=== PATIENT | male | born 1945 | race Caucasian/White ===

== ENCOUNTER 2016-08-04 11:30 | Emergency (ER) | payer OTHER, MEDICARE ==
[2016-08-04 11:36] VITALS: TEMP 98.2
[2016-08-04] MEDS ORDERED: KETOROLAC 30 MG/1 ML SDV IVP ONE (12:15)
[2016-08-04] MEDS ORDERED: METOCLOPRAMIDE 10 MG/2 ML VIAL IVP ONE (12:15)
[2016-08-04] MEDS ORDERED: NS 1,000 ML IV ONE (12:15)
[2016-08-04] MEDS ORDERED: HYDROmorphONE/DILAUDID 1 MG/ML SYR IVP ONE ×4 (12:15→16:54)
--- NOTE | 2016-08-04 12:20 | EDPHY ---
H & P Stated Complaint: Migraine 11 days with sinus pressure Source: Patient Exam Limitations: No limitations - Personal History Current Tetanus/Diphtheria Vaccine: Yes Current Tetanus Diphtheria and Acellular Pertussis (TDAP): Yes Tetanus Vaccine Date: 07/2012 - Medical/Surgical History Hx Asthma: No Hx Chronic Respiratory Disease: No Hx Diabetes: No Hx Cardiac Disease: Yes Hx Renal Disease: No Hx Cirrhosis: No Hx Alcoholism: No Hx HIV/AIDS: No Hx Splenectomy or Spleen Trauma: No Other PMH: medical- DVT 07/15, CAD, HTN, HLD. surgical- knee scope 07/22/13, spinal fusions, B thumbs replaced, rigo - Family History Significant Family History: No pertinent family hx - Social History Smoking Status: Never smoked Alcohol Use: Sober Drug Use: None Time Seen by Provider: 08/04/16 12:05 HPI/ROS: CHIEF COMPLAINT: Headache HISTORY OF PRESENT ILLNESS: Patient is a 70-year-old man who states that he is a lifetime chronic migrainer. He states that he has had a migraine for the last several days. He was present for 7 days and then resolved for 2 days and now has returned for 4 days. He states that they are absolutely typical of his chronic migraines. He has taken his Imitrex at home without relief. He has seen several neurologists in the past. Most recently Marie Fonseca who tried Botox injections without significant relief. He also has been through the [facility] protocol without success. In the past he had been on Coumadin for DVT but no longer is. He takes methadone for chronic back pain. He follows Dr. Raina Mcleod for this. He he has not had a fever. He has had some sinus congestion but only for the last day. He has not had any focal weakness or numbness. No speech abnormalities. He is able to ambulate without difficulty. No vision changes. REVIEW OF SYSTEMS: Constitutional: denies: chills, fever, recent illness, recent injury EENTM: denies: blurred vision, double vision, nose congestion Respiratory: denies: cough, shortness of breath Cardiac: denies: chest pain, irregular heart rate, lightheadedness, palpitations Gastrointestinal/Abdominal: denies: abdominal pain, diarrhea, nausea, vomiting, blood streaked stools Genitourinary: denies: dysuria, frequency, hematuria, pain Musculoskeletal: denies: joint pain, muscle pain Skin: denies: lesions, rash, jaundice, bruising Neurological: See HPI Hematologic/Lymphatic: denies: blood clots, easy bleeding, easy bruising Immunologic/allergic: denies: HIV/AIDS, transplant EXAM: GENERAL: Towel covering head, answers all questions appropriately. HEAD: Atraumatic, normocephalic. EYES: Pupils equal round and reactive to light, extraocular movements intact, sclera anicteric, conjunctiva are normal. ENT: TMs normal, nares patent, oropharynx clear without exudates. Moist mucous membranes. NECK: Normal range of motion, supple without lymphadenopathy or JVD. LUNGS: Breath sounds clear to auscultation bilaterally and equal. No wheezes rales or rhonchi. HEART: Regular rate and rhythm without murmurs, rubs or gallops. ABDOMEN: Soft, nontender, normoactive bowel sounds. No guarding, no rebound. No masses appreciated. BACK: No CVA tenderness, no spinal tenderness, step-offs or deformities EXTREMITIES: Normal range of motion, no pitting or edema. No clubbing or cyanosis. NEUROLOGICAL: Cranial nerves II through XII grossly intact. Normal speech, normal gait. 5/5 strength, normal movement in all extremities, normal sensation PSYCH: Normal mood, normal affect. SKIN: Warm, dry, normal turgor, no visible rashes or lesions. (José Romano) Constitutional: Initial Vital Signs Temperature (C) 36.8 C 08/04/16 11:33 Heart Rate 111 H 08/04/16 11:33 Respiratory Rate 16 08/04/16 11:33 Blood Pressure 138/100 H 08/04/16 11:33 O2 Sat (%) 95 08/04/16 11:33 O2 Delivery Mode Room Air O2 (L/minute) 2 Allergies/Adverse Reactions: NSAIDS (Non-Steroidal Anti-Inflamma [Nsaids] Allergy (Severe, Verified 08/26/13 19:53) GASTRIC ULCER acetaminophen [From Percocet] Allergy (Intermediate, Verified 08/26/13 19:53) Vomiting hydrocodone bitartrate [From Vicodin] Allergy (Intermediate, Verified 08/26/13 19:53) Vomiting nitroglycerin [Nitroglycerin] Allergy (Intermediate, Verified 08/26/13 19:53) Other-Enter Comments oxycodone HCl [From Percocet] Allergy (Intermediate, Verified 08/26/13 19:53) Vomiting CODIENE Allergy (Intermediate, Uncoded 08/26/13 19:53) Vomiting Home Medications: Medication Instructions Recorded HYDROmorphone HCL [Dilaudid] 4 mg PO Q4-6PRN PRN 09/26/11 Metoprolol Succinate 50 mg PO BID 09/26/11 Rosuvastatin Calcium [Crestor] 20 mg PO HS 09/26/11 ELETRIPTAN HYDROBROMIDE [RELPAX] 40 mg PO Q3D PRN 09/27/11 Fish Oil/Dha/Epa [Fish Oil 1,200 2 each PO DAILY 09/27/11 mg Fish Oil] Zolpidem Tartrate [Ambien] 10 mg PO HS 09/27/11 Warfarin Sodium [Coumadin 2.5MG 08/26/13 (RX)] Warfarin Sodium [Coumadin 5MG (RX)] 08/26/13 AZITHROMYCIN [Z-PACK] 250 mg PO DAILY #4 tab 08/04/16 Medical Decision Making - Diagnostics Imaging: Pipo June-radiologist called this morning regarding this patient's CT head w/o contrast scan that was performed on the August 04, but apparently there was no documentation of the radiology read being communicated to Dr. Dawson. A review of the chart this am reveals that Dr. Dawson did diagnose the patient with maxillary sinusitis, so I suspect that the read was communicated on Aug 04. Per Dr. June, the CT scan reveals sinusitis but no intracranial pathology (Wallace Farmer) ED Course/Re-evaluation: 1544; this patient was signed over to me at 3:00 p.m. shift change. Patient having ongoing migraine headache consistent with his previous migraines. He still the made better pain control over the ER visit. He has been here for 4 hours. His pain is now 6/10. However he is requesting more pain medicine. I re-evaluated him he has a nonfocal neurological exam is symptoms are similar to previous migraines he is requesting IV Dilaudid. I have just ordered 2 mg IV Dilaudid. 1655: re-evaluation at this time patient still tells me his headache is 7/10. Initially want to go home however now he is requesting more Dilaudid. I will give him 1 more dose of Dilaudid to see if this helps with his acute pain and hopefully patient go home. I did offer patient admission for status migrainosus however he at this time is decline. 1732: Re-evaluation at this time patient is resting comfortably. Patient does feel much better his pain is currently 4/10 after 4 mg of IV Dilaudid. He is requesting to go home. Again I did offer him hospital admission for intractable headache however he has declined. He is comfortable going home at this time. Re-examination is neurological exam is unremarkable not vomiting no fever no meningeal signs a nonfocal neurological exam all cranial nerves are intact. (Herminio Dawson) The patient states that his headache has gone from a 9 to an 8. He is on methadone chronically. I will treat with more Dilaudid as well as dexamethasone and Ativan. 2:20 p.m. the patient's pain is slightly better. He states that it is now down to a 7 or 6. He states that is his goal would be to get it down to a 4. He states that really does not completely go away. We will try treating him with ketamine. Is 3:10 p.m. the patient is feeling slightly better. He has only received half dose of ketamine. We will give him the rest. Care transferred to Dr. Herminio Dawson. I recommended a dose or 2 more of pain medication if needed and then home. The patient and his are motivated to go home and do not wish to stay in the hospital. (José Romano) Differential Diagnosis: Partial list of the Differential diagnosis considered include but were not limited to; migraine, sinusitis, narcotic dependence and although unlikely based on the history and physical exam, I also considered hemorrhage, tumor, abscess. (José Romano) - Data Points Laboratory Results: Laboratory Results 08/04/16 12:11 Medications Given: Discontinued Medications Azithromycin (Zithromax) 500 mg PO EDNOW ONE PRN Reason: Protocol Stop: 08/04/16 13:41 Last Admin: 08/04/16 14:03 Dose: 500 mg Dexamethasone (Decadron Injection) 10 mg IVP EDNOW ONE Stop: 08/04/16 13:27 Last Admin: 08/04/16 14:03 Dose: 10 mg Diphenhydramine HCl (Benadryl Injection) 25 mg IVP EDNOW ONE Stop: 08/04/16 12:16 Last Admin: 08/04/16 12:31 Dose: 25 mg Hydromorphone HCl (Dilaudid) 1 mg IVP EDNOW ONE Stop: 08/04/16 12:16 Last Admin: 08/04/16 12:32 Dose: 1 mg Hydromorphone HCl (Dilaudid) 1 mg IVP EDNOW ONE Stop: 08/04/16 13:27 Last Admin: 08/04/16 13:47 Dose: 1 mg Hydromorphone HCl (Dilaudid) 2 mg IVP EDNOW ONE Stop: 08/04/16 15:46 Last Admin: 08/04/16 16:06 Dose: 2 mg Hydromorphone HCl (Dilaudid) 4 mg IVP EDNOW ONE Stop: 08/04/16 16:55 Last Admin: 08/04/16 17:04 Dose: 4 mg Sodium Chloride (Ns) 1,000 mls @ 0 mls/hr IV ONCE ONE PRN Reason: Wide Open Stop: 08/04/16 12:16 Last Admin: 08/04/16 12:32 Dose: 1,000 mls Ketamine HCl (Ketamine) 15 mg IVP EDNOW ONE Stop: 08/04/16 14:29 Last Admin: 08/04/16 15:01 Dose: 15 mg Ketorolac Tromethamine (Toradol) 30 mg IVP EDNOW ONE Stop: 08/04/16 12:16 Last Admin: 08/04/16 12:32 Dose: 30 mg Lorazepam (Ativan Injection) 1 mg IVP EDNOW ONE Stop: 08/04/16 13:35 Last Admin: 08/04/16 13:48 Dose: 1 mg Metoclopramide HCl (Reglan Injection) 10 mg IVP EDNOW ONE Stop: 08/04/16 12:16 Last Admin: 08/04/16 12:32 Dose: 10 mg Departure - Departure Disposition: Home, Routine, Self-Care Clinical Impression: Migraine Qualifiers: Qualifier Code: (G43.001) Migraine without aura, not intractable, with status migrainosus Sinusitis Qualifiers: Qualifier Code: (J01.00) Acute maxillary sinusitis, unspecified Condition: Fair Instructions: Migraine Headache (ED), Sinusitis (ED) Referrals: Danica Cervantes MD [Primary Care Provider] - As per Instructions Prescriptions: AZITHROMYCIN [Z-PACK] 250 mg PO DAILY #4 tab
[2016-08-04 12:37] LABS: ANION GAP 14 mEq/L (8-16); CALCIUM 9.1 mg/dL (8.5-10.4); CARBON DIOXIDE 19 mEq/l (22-31); CHLORIDE 104 mEq/L (97-110); CREATININE 0.6 mg/dL (0.7-1.3); GLOMERULAR FILTRATION RATE > 60; GLUCOSE 144 mg/dL (70-100); POTASSIUM 4.6 mEq/L (3.5-5.2); SODIUM 137 mEq/L (134-144)
[2016-08-04] MEDS ORDERED: DEXAMETHASONE 10 MG/ML VIAL IVP ONE (13:26)
[2016-08-04] MEDS ORDERED: LORazepam 2 MG/ML INJ IVP ONE (13:34)
[2016-08-04] MEDS ORDERED: AZITHROMYCIN 250 MG TAB PO ONE (13:40)
[2016-08-04] MEDS ORDERED: KETAMINE 100 MG/10 ML SYR IVP ONE (14:28)
[2016-08-04] MEDS ORDERED: NS 100 ML BAG IV ONE (16:55)
[2016-08-04 17:50] VITALS: BP 107/51; PULSE 72; RESP 14; O2SAT 92
--- NOTE | 2016-08-06 09:04 | CT ---
CT Head (Without Contrast) August 04, 2016 Indication: Headache. Technique: Standard noncontrast head CT protocol utilizing 5 mm thick collimated slices and field of view of 23 cm. Dose reduction techniques were utilized. Findings: The brain is normally developed. No intracranial hemorrhage, mass lesion, swelling, or ext raaxial fluid collection. The ventricles are normal caliber and midline. The danielson and white matter ryder s normal attenuation. Danielson-white interfaces are preserved. No evidence of acute ischemia. Mild mucosa l thickening is present in the ethmoid and maxillary sinuses. Layering fluid partially fills the left maxillary sinus. The frontal, sphenoid, and mastoid air cells are clear. Impression: 1. Normal brain. No intracranial hemorrhage or mass. 2. Suspect acute left maxillary sinusitis. Comment: The results were discussed with Dr. Wallace Farmer on August 06, 2016 at 8:30 a.m. The lan dy was completed at 12:37 p.m. on August 04, however, was not submitted to PACS for reporting until 2016. Dr. Farmer will follow up with Dr. Dawson today on August 06.
== END 2016-08-04 17:51 | disposition home or self-care (01) ==
DX: G43.001 Migraine without aura, not intractable, with status migrainosus (principal); J01.00 Acute maxillary sinusitis, unspecified; I10 Essential (primary) hypertension; I25.10 Atherosclerotic heart disease of native coronary artery without angina pectoris; Z79.01 Long term (current) use of anticoagulants
CPT/HCPCS: 70450; 96361; 96374; 96375; 96376; 99285; J1170; J1885; J2765

== ENCOUNTER → 2018-04-15 | Outpatient (CLI) | payer OTHER, MEDICARE | LOC: BMCIMAGING 13:34 | PROVIDERS: ATTEND Internal Medicine Rheumatology | DX: M17.12 Unilateral primary osteoarthritis, left knee (principal); M81.0 Age-related osteoporosis without current pathological fracture ==

== ENCOUNTER 2018-09-16 23:12 | Observation (INO) | payer OTHER, MEDICARE ==
[2018-09-16] MEDS ORDERED: NS 1,000 ML IV ONE (23:24)
--- NOTE | 2018-09-16 23:24 | EDPHY ---
H & P Stated Complaint: epigatric pain and fullness in the chest Time Seen by Provider: 09/16/18 23:24 HPI/ROS: HPI CHIEF COMPLAINT: Chest pain. HISTORY OF PRESENT ILLNESS: This is a 72-year-old male arrives to the emergency room by private vehicle with "indigestion". Patient reports around 10 :00 p.m. Or approximately an hour and half ago he developed epigastric discomfort radiating into his chest. Describes as pressure dull sensation. Epigastric mid chest also radiates to his left shoulder. Left scapula. He denies any nausea denies diaphoresis denies numbness or tingling. He does not typically have this. This concerned him he decided come the emergency room. He currently has chest pressure 6/10. Nonradiating. Patient took full-dose aspirin prior to arrival. Past Medical History: History of hypertension, hyperlipidemia, osteoarthritis, debilitating migraines, chronic pain coronary artery disease without stents, gastric ulcer Past Surgical History: No recent surgery history of gastric ulcer Social History: Denies drugs alcohol tobacco. Family History: Heart disease in mom and dad. Also heart disease coronary artery disease with his brother who is 2 years younger with 2 stents. ROS REVIEW OF SYSTEMS: 10 Systems were reviewed and negative with the exception of the elements mentioned in the history of present illness. Exam Constitutional nontoxic no acute distress, triage nursing summary reviewed, vital signs reviewed, awake/alert. Eyes normal conjunctivae and sclera, EOMI, PERRLA. HENT normal inspection, atraumatic, moist mucus membranes, no epistaxis, neck supple/ no meningismus, no raccoon eyes. Respiratory clear to auscultation bilaterally, normal breath sounds, no respiratory distress, no wheezing. Cardiovascular rate normal, regular rhythm, no murmur, no edema, distal pulses normal. Gastrointestinal soft, non-tender, no rebound, no guarding, normal bowel sounds, no distension, no pulsatile mass. Genitourinary no CVA tenderness. Musculoskeletal no midline vertebral tenderness, full range of motion, no calf swelling, no tenderness of extremities, no meningismus, good pulses, neurovascularly intact. Skin pink, warm, & dry, no rash, skin atraumatic. Neurologic awake, alert and oriented x 3, AAOx3, moves all 4 extremities equally, motor intact, sensory intact, CN II-XII intact, normal cerebellar, normal vision, normal speech. Psychiatric normal mood/affect. Heme/Lymph/Immune no lymphadenopathy. Differential Diagnosis: Differential diagnosis includes but is not limited to: ACS, atypical chest pain, pneumothorax, pneumonia, pulmonary embolism, aortic dissection, congestive heart failure, tumor, musculoskeletal pain, esophageal pain, GERD, peptic ulcer disease, pancreatitis Medical Decision Making: Plan for this patient IV establishment IV fluid bolus , rn cardiac cath, troponin, EKG, chest x-ray, rule out acute coronary syndrome Re-evaluation: Patient is allergic to aspirin Additionally allergic to nitroglycerin. He will be given a GI cocktail to see if this improves. EKG interpretation by me on record in [employer] system. Impression time of EKG 2326, sinus rhythm rate of 61, left anterior fascicular block. 1242: Re-evaluation at this time patient resting comfortably. Denies significant chest pain or chest pressure at this time. patient heart score elevated 5. Updated patient on results of his tests including EKG, chest x-ray, troponin and recommend he gets admitted overnight. HEART Score for Major Cardiac Events from [employer] on 09/17/2018 All calculations should be rechecked by clinician prior to use RESULT SUMMARY: 5 points Moderate Score (4-6 points) Risk of MACE of 12-16.6%. INPUTS: History > 1 = Moderately suspicious EKG > 0 = Normal Age > 2 = 65 Risk factors > 2 = 3 risk factors or history of atherosclerotic disease Initial troponin > 0 = normal limit Patient's heart score elevated at 5. Patient agrees for hospital admission for further cardiac evaluation and rule out. Will consult the hospitalist service. Source: Patient - Personal History Current Tetanus/Diphtheria Vaccine: Yes Current Tetanus Diphtheria and Acellular Pertussis (TDAP): Yes Tetanus Vaccine Date: 07/2012 - Medical/Surgical History Hx Asthma: No Hx Chronic Respiratory Disease: No Hx Diabetes: No Hx Cardiac Disease: Yes Hx Renal Disease: No Hx Cirrhosis: No Hx Alcoholism: No Hx HIV/AIDS: No Hx Splenectomy or Spleen Trauma: No Other PMH: medical- DVT 07/15, CAD, HTN, HLD. surgical- knee scope 07/22/13, spinal fusions, B thumbs replaced, rigo - Social History Smoking Status: Never smoked Constitutional: Initial Vital Signs Temperature (C) 36.6 C 09/16/18 23:15 Heart Rate 66 09/16/18 23:15 Respiratory Rate 16 09/16/18 23:15 Blood Pressure 143/108 H 09/16/18 23:15 O2 Sat (%) 92 09/16/18 23:15 O2 Delivery Mode Room Air Allergies/Adverse Reactions: NSAIDS (Non-Steroidal Anti-Inflamma [Nsaids] Allergy (Severe, Verified 09/16/18 23:18) GASTRIC ULCER hydrocodone bitartrate [From Vicodin] Allergy (Intermediate, Verified 09/16/18 23:18) Vomiting nitroglycerin [Nitroglycerin] Allergy (Intermediate, Verified 09/16/18 23:18) Other-Enter Comments oxycodone HCl [From Percocet] Allergy (Intermediate, Verified 09/16/18 23:18) Vomiting amitriptyline [From Elavil] Allergy (Verified 09/16/18 23:22) oxymorphone [From Opana] Allergy (Verified 09/17/18 09:17) Vomiting CODIENE Allergy (Intermediate, Uncoded 09/16/18 23:18) Vomiting Home Medications: Medication Instructions Recorded Zolpidem Tartrate [Ambien 5MG (*)] 10 mg PO HS 09/27/11 Atorvastatin Calcium [Lipitor 40 40 mg PO DAILY 09/16/18 mg (*)] Cyclobenzaprine [Flexeril 10 MG 10 mg PO DAILY PRN 09/16/18 (*)] Diazepam [Valium 5 MG (*)] 5 mg PO DAILY PRN 09/16/18 Eletriptan Hydrobromide [Relpax] 40 mg PO DAILY PRN 09/16/18 FLUoxetine [Prozac 20 MG (*)] 40 mg PO DAILY 09/16/18 Hyoscyamine Sulfate [Levsin, 0.125 mg PO DAILY PRN 09/16/18 Hyomax-Sl 0.125 mg (*)] Prochlorperazine Maleate 10 mg PO DAILY PRN 09/16/18 [Compazine 10mg (*)] celeCOXIB [Celebrex (*)] 200 mg PO BID PRN 09/16/18 Metoprolol Tartrate [Lopressor 25 25 mg PO BID 09/17/18 mg (*)] Pantoprazole Sodium [Protonix 40mg 40 mg PO DAILY #30 ea 09/17/18 (*)] Promethazine HCl [Phenergan 25mg 25 mg PO DAILY PRN 09/17/18 (*)] Sumatriptan Succinate [Imitrex] 100 mg PO DAILY PRN 09/17/18 Medical Decision Making - Data Points Laboratory Results: Laboratory Results 09/16/18 23:23 09/16/18 23:23 Medications Given: Discontinued Medications Acetaminophen (Tylenol) 1,000 mg PO ONCE ONE Stop: 09/17/18 02:49 Last Admin: 09/17/18 02:57 Dose: 1,000 mg Acetaminophen (Tylenol) 1,000 mg PO Q8H PRN PRN Reason: Pain, Mild/Fever, Can Take PO Stop: 03/16/19 01:35 Last Admin: 09/17/18 13:06 Dose: 1,000 mg Al Hydroxide/Mg Hydroxide (Maalox Susp) 30 ml PO ONCE ONE Stop: 09/16/18 23:37 Last Admin: 09/16/18 23:40 Dose: 30 ml Enoxaparin Sodium (Lovenox) 40 mg SC DAILY KIARRA Stop: 03/16/19 08:59 Last Admin: 09/17/18 15:32 Dose: Not Given Hyoscyamine Sulfate (Levsin, Hyomax-Sl) 0.25 mg PO ONCE ONE Stop: 09/16/18 23:37 Last Admin: 09/16/18 23:40 Dose: 0.25 mg Sodium Chloride (Ns) 1,000 mls @ 0 mls/hr IV EDNOW ONE; Wide Open PRN Reason: Protocol Stop: 09/16/18 23:25 Last Admin: 09/16/18 23:39 Dose: 1,000 mls Lidocaine (Lidocaine 2% Viscous) 15 ml PO ONCE ONE Stop: 09/16/18 23:37 Last Admin: 09/16/18 23:40 Dose: 15 ml Miscellaneous Information (Patch Removal) 1 ea TD DAILY KIARRA Stop: 03/16/19 08:59 Last Admin: 09/17/18 12:55 Dose: 1 ea Miscellaneous Medication (Icy Hot Lidocaine/Menthol 4%/1% Patch) 1 patch TD DAILY KIARRA Stop: 03/16/19 08:59 Last Admin: 09/17/18 02:58 Dose: 1 patch Zolpidem Tartrate (Ambien) 10 mg PO ONCE ONE Stop: 09/17/18 02:50 Last Admin: 09/17/18 02:57 Dose: 10 mg Point of Care Test Results: Chemistry 09/16/18 23:31 POC Troponin I 0.00 ng/mL ng/mL (0.00-0.08) Departure - Departure Disposition: [facility] Inpatient Acute Clinical Impression: Chest pain Qualifiers: Chest pain type: unspecified Qualified Code(s): R07.9 - Chest pain, unspecified Condition: Fair
[2018-09-16 23:36] LABS: PLATELET COUNT 227 10^3/uL (150-400)
[2018-09-16] MEDS ORDERED: MAG HYDROX/AL HYDROX/SIMETH 30 ML UDCUP PO ONE (23:36)
[2018-09-16] MEDS ORDERED: HYOSCYAMINE SULFATE 0.125 MG TAB PO ONE (23:36)
[2018-09-16] MEDS ORDERED: LIDOCAINE 2% VISCOUS 15 ML UDCUP PO ONE (23:36)
[2018-09-16 23:44] LABS: INR 0.98 (0.83-1.16); PROTIME(PATIENT) 13.2 SEC (12.0-15.0)
[2018-09-17] MEDS ORDERED: ACETAMINOPHEN 325 MG TAB PO PRN (01:36)
[2018-09-17] MEDS ORDERED: ONDANSETRON DISINTEGRATING 4 MG TAB PO PRN (01:36)
[2018-09-17] MEDS ORDERED: ONDANSETRON 4 MG/2 ML VIAL IVP PRN (01:36)
[2018-09-17] MEDS ORDERED: ACETAMINOPHEN 500 MG TAB PO ONE (02:48)
[2018-09-17] MEDS ORDERED: ZOLPIDEM TARTRATE 5 MG TAB PO ONE (02:49)
[2018-09-17] MEDS ORDERED: ACETAMINOPHEN 500 MG TAB ONE (02:56)
[2018-09-17] MEDS ORDERED: LIDOCAINE 4%/MENTHOL 1% PATCH TD ONE (02:56)
[2018-09-17] MEDS ORDERED: ZOLPIDEM TARTRATE 5 MG TAB ONE (02:56)
--- NOTE | 2018-09-17 05:28 | PDGENHP ---
History and Physical - Chief Complaint Chest pain - History of Present Illness 72 yo M w/ hx of nonobstructive CAD (cath in 2012, no intervention), HTN, and severe spinal arthritis/chronic pain presents with chest pain. The patient tells me he noted sub-sternal pain this evening, which he described as "indigestion". However, he has never had pain of this nature in the past. The pain also radiated to his back and was different from his usual back pain. He presented to the ED for evaluation as a result. The pain was moderate in intensity but persisted for several hours. His ECG does not reveal acute ischemia and his troponin is negative. He is being admitted for evaluation due to elevated HEART score. Case discussed with ED physician Dr. Zimmerman; records reviewed and summarized above. History Information - Allergies/Home Medication List Allergies/Adverse Reactions: NSAIDS (Non-Steroidal Anti-Inflamma [Nsaids] Allergy (Severe, Verified 09/16/18 23:18) GASTRIC ULCER hydrocodone bitartrate [From Vicodin] Allergy (Intermediate, Verified 09/16/18 23:18) Vomiting nitroglycerin [Nitroglycerin] Allergy (Intermediate, Verified 09/16/18 23:18) Other-Enter Comments oxycodone HCl [From Percocet] Allergy (Intermediate, Verified 09/16/18 23:18) Vomiting amitriptyline [From Elavil] Allergy (Verified 09/16/18 23:22) oxymorphone [From Opana] Allergy (Verified 09/16/18 23:18) CODIENE Allergy (Intermediate, Uncoded 09/16/18 23:18) Vomiting Home Medications: HYDROmorphone HCL [Dilaudid] 4 mg PO Q4-6PRN PRN 09/26/11 [Last Taken Unknown] Metoprolol Succinate 50 mg PO BID 09/26/11 [Last Taken 09/26/11 06:00] ELETRIPTAN HYDROBROMIDE [RELPAX] 40 mg PO Q3D PRN 09/27/11 [Last Taken 09/20/11] Zolpidem Tartrate [Ambien] 10 mg PO HS 09/27/11 [Last Taken 09/25/11 21:00] Celebrex 09/16/18 [Last Taken Unknown] Compazine 10mg (*) 09/16/18 [Last Taken Unknown] Flexeril 10 MG (*) 09/16/18 [Last Taken Unknown] Hyoscyamine Sulfate ER 09/16/18 [Last Taken Unknown] Lipitor 09/16/18 [Last Taken Unknown] Protonix 09/16/18 [Last Taken Unknown] Prozac 20 MG (*) 09/16/18 [Last Taken Unknown] Relpax 09/16/18 [Last Taken Unknown] Valium 09/16/18 [Last Taken Unknown] I have personally reviewed and updated: family history, medical history - Past Medical History arthritis, coronary artery disease - Surgical History Reports: spinal surgery - Family History Additional family history: Brother, who is younger, had 2 recent VA's - Social History Smoking Status: Never smoked Review of Systems Review of Systems: ROS: 10pt was reviewed & negative except for what was stated in HPI & below Physical Exam Physical Exam: Temp Pulse Resp BP Pulse Ox 36.6 C 56 L 16 131/77 H 92 09/16/18 23:15 09/17/18 04:00 09/17/18 04:00 09/17/18 04:00 09/17/18 04:00 Constitutional: appears nourished, uncomfortable Eyes: PERRL, EOMI Ears, Nose, Mouth, Throat: moist mucous membranes, no oral mucosal ulcers Cardiovascular: regular rate and rhythym, systolic murmur Respiratory: no respiratory distress, clear to auscultation Gastrointestinal: normoactive bowel sounds, soft, non-tender abdomen Skin: warm, normal color Musculoskeletal: full muscle strength, no muscle tenderness Neurologic: AAOx3, CN II-XII Intact Psychiatric: interacting appropriately, not anxious Lab Data & Imaging Review 09/16/18 23:23 09/16/18 23:23 WBC 9.89 10^3/uL (3.80-9.50) H 09/16/18 23:23 RBC 5.65 10^6/uL (4.40-6.38) 09/16/18 23:23 Hgb 17.3 g/dL (13.7-17.5) 09/16/18 23:23 Hct 51.1 % (40.0-51.0) H 09/16/18 23:23 MCV 90.4 fL (81.5-99.8) 09/16/18 23:23 MCH 30.6 pg (27.9-34.1) 09/16/18 23: MCHC 33.9 g/dL (32.4-36.7) 09/16/18 23: RDW 12.8 % (11.5-15.2) 09/16/18 23:23 Plt Count 227 10^3/uL (150-400) 09/16/18 23: MPV 8.5 fL (8.7-11.7) L 09/16/18 23: Neut % (Auto) 60.7 % (39.3-74.2) 09/16/18 23: Lymph % (Auto) 23.5 % (15.0-45.0) 09/16/18 23: [place] % (Auto) 11.2 % (4.5-13.0) 09/16/18 23: Eos % (Auto) 3.3 % (0.6-7.6) 09/16/18: Baso % (Auto) 1.0 % (0.3-1.7) 09/16/18 23: Nucleat RBC Rel Count 0.0 % (0.0-0.2) 09/16/18 23: Absolute Neuts (auto) 6.00 10^3/uL (1.70-6.50) 09/16/18 23: Absolute Lymphs (auto) 2.32 10^3/uL (1.00-3.00) 09/16/18 23: Absolute Monos (auto) 1.11 10^3/uL (0.30-0.80) H 09/16/18 23: Absolute Eos (auto) 0.33 10^3/uL (0.03-0.40) 09/16/18 23: Absolute Basos (auto) 0.10 10^3/uL (0.02-0.10) 09/16/18: Absolute Nucleated RBC 0.00 10^3/uL (0-0.01) 09/16/18 23: Immature Gran % 0.3 % (0.0-1.1) 09/16/18 23: Immature Gran # 0.03 10^3/uL (0.00-0.10) 09/16/18 23:23 PT 13.2 SEC (12.0-15.0) 09/16/18 23:23 INR 0.98 (0.83-1.16) 09/16/18 23:23 APTT 25.5 SEC (23.0-38.0) 09/16/18 23:23 Sodium 139 mEq/L (135-145) 09/16/18 23:23 Potassium 4.2 mEq/L (3.5-5.2) 09/16/18 23:23 Chloride 111 mEq/L (97-110) H 09/16/18 23:23 Carbon Dioxide 22 mEq/l (22-31) 09/16/18 23:23 Anion Gap 6 mEq/L (6-14) 09/16/18 23:23 BUN 19 mg/dL (7-23) 09/16/18 23:23 Creatinine 0.9 mg/dL (0.7-1.3) 09/16/18 23:23 Estimated GFR > 60 09/16/18 23:23 Glucose 123 mg/dL (70-100) H 09/16/18 23:23 Calcium 9.4 mg/dL (8.5-10.4) 09/16/18 23:23 Magnesium 2.1 mg/dL (1.6-2.3) 09/16/18 23:23 Total Bilirubin 0.6 mg/dL (0.1-1.4) 09/16/18 23:23 Conjugated Bilirubin 0.3 mg/dL (0.0-0.5) 09/16/18 23:23 Unconjugated Bilirubin 0.3 mg/dL (0.0-1.1) 09/16/18 23:23 AST 25 IU/L (17-59) 09/16/18 23:23 ALT 30 IU/L (21-72) 09/16/18 23:23 Alkaline Phosphatase 66 IU/L (38-126) 09/16/18 23:23 POC Troponin I 0.00 ng/mL (0.00-0.08) 09/16/18 23:31 NT-Pro-B Natriuret Pep 34 pg/mL (0-125) 09/16/18 23:23 Total Protein 6.5 g/dL (6.3-8.2) 09/16/18 23:23 Albumin 4.1 g/dL (3.5-5.0) 09/16/18 23:23 Lipase 111 IU/L (23-300) 09/16/18 23:23 Visualized and Interpreted Chest x-ray results: Yes Chest X-Ray results: no infiltrate Visualized and Interpreted EKG results: Yes EKG Interpretation: Positive for: other (LAFB) Assessment & Plan Assessment: 72 yo M w/ hx of nonobstructive CAD (cath in 2012, no intervention), HTN, and severe spinal arthritis/chronic pain presents with chest pain. Plan: 1. Chest pain - Sub-sternal and present at rest; pain is somewhat atypical but he has very strong family history and known, non-obstructive CAD. HEART score if 5 indicating need for further evaluation. Troponin negative and ECG ( personally reviewed/interpreted) without signs of acute ischemia. - Observe in PCU - Monitor on telemetry, trend cardiac enzymes - ECG PRN for chest pain - Patient refuses NTG due to hx of migraines - Will order lexiscan nuclear stress study noting patient's inability to exercise 2. CAD - Non-obstructive based on 2012 catheterization where on intervention was performed. - Acute management as above - Does not take ASA due to hx of peptic ulcer disease - Continue statin pending reconciliation 3. Chronic back pain - With hx of multiple back surgeries. He recently weaned off of methadone and does not want any more opiates. - Conservative pain control with APAP, lidocaine patch 4. HTN - Continue home medications pending reconciliation Diet - NPO Code - Full Ppx - LMWH Dispo - Admit under observation status
[2018-09-17] MEDS ORDERED: ACETAMINOPHEN 500 MG TAB PO PRN (05:33)
[2018-09-17 06:37] LABS: PLATELET COUNT 187 10^3/uL (150-400)
[2018-09-17] MEDS ORDERED: ENOXAPARIN 40 MG/0.4 ML SYR SC SCH (09:00)
[2018-09-17] MEDS ORDERED: LIDOCAINE 4%/MENTHOL 1% PATCH TD SCH ×2 (09:00→21:00)
[2018-09-17] MEDS ORDERED: PATCH REMOVAL 1 EA PATCH TD SCH (09:00)
[2018-09-17] MEDS ORDERED: REGADENOSON 0.4 MG/5 ML SYR IVP ONE (10:17)
--- NOTE | 2018-09-17 12:06 | CPR ---
[f rep st] NONINVASIVE CARDIAC PROCEDURE REPORT DATE OF PROCEDURE: 09/17/2018 PROCEDURE: Lexiscan nuclear stress test. INDICATION: The patient is a 72-year-old male with a history of coronary artery disease on the basis of an angiogram 7 to 8 years ago. He also has a history of hypertension and hyperlipidemia. He pre sented to the hospital with chest pain that began at rest. He was given a GI cocktail in the emergen cy room with resolution in his discomfort. PROCEDURE IN DETAIL: Consent was obtained and the patient was placed on continuous telemetry. His r esting EKG revealed sinus bradycardia with heart rate of 59. 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 There are also nonspecific ST-T wave changes. The patient was infused wi th Lexiscan and complained of flushing, headache, and shortness of breath. He remained in normal sin us rhythm throughout the study without any significant ST-T wave changes. His blood pressure at rest was 120/80, and peaked at 146/80. His heart rate did increase with infusion to 94 beats per minute, but essentially was stable. PLAN: Await nuclear images. /[id number]/MODL
[2018-09-17 13:11] VITALS: BP 131/82
--- NOTE | 2018-09-17 17:16 | PDDCSUM ---
Discharge Summary Discharge Summary: 72 yo M w/ hx of nonobstructive CAD (cath in 2012, no intervention), HTN, and severe spinal arthritis/chronic pain presents with chest pain. He had negative EKG and negative Troponin. He had a nuclear stress test which was negative. Etiology may be due to GERD as cp resolved with GI cocktail. Protonix has been changed from PRN to daily. He will f/u with his PCP next week. DDX: 1. Chest pain - Sub-sternal and present at rest; pain is somewhat atypical but he has very strong family history and known, non-obstructive CAD. HEART score if 5 indicating need for further evaluation. Troponin negative and ECG ( personally reviewed/interpreted) without signs of acute ischemia. - lexiscan nuclear stress study unremarkable 2. CAD - Non-obstructive based on 2012 catheterization where on intervention was performed. - Does not take ASA due to hx of peptic ulcer disease 3. Chronic back pain - With hx of multiple back surgeries. He recently weaned off of methadone and does not want any more opiates. no meds were adjusted - Conservative pain control with APAP, lidocaine patch 4. HTN - Continue home medications, BB Exam: NAD AAOX3 RRR CTA B S/NT/ND MEDS: SEE MED REC TOTAL TIME SPENT ON D/C IS 35 MINS
--- NOTE | 2018-09-18 07:33 | CPEKG ---
Test Reason : OPEN Blood Pressure : / mmHG Vent. Rate : 061 BPM Atrial Rate : 060 BPM P-R Int : 199 ms QRS Dur : 110 ms QT Int : 432 ms P-R-T Axes : 055 -59 079 degrees QTc Int : 435 ms Sinus rhythm Left anterior fascicular block Confirmed by Herminio Dawson ([id number]) on 09/18/2018 7:33:22 AM Referred By: Herminio Dawson Confirmed By:Herminio Dawson
== END 2018-09-17 15:36 | disposition home or self-care (01) ==
LOC: F2W 09-17 12:41
PROVIDERS: ADMIT Student in an Organized Health Care Education/Training Program; ATTEND Student in an Organized Health Care Education/Training Program
DX: R07.9 Chest pain, unspecified (principal); I25.10 Atherosclerotic heart disease of native coronary artery without angina pectoris; M54.9 Dorsalgia, unspecified; I10 Essential (primary) hypertension; E86.9 Volume depletion, unspecified
CPT/HCPCS: 71045; 78452; 93005; 93017; 96360; 99285; A9500; G0378; J2785; 84484-ER; J1650

== ENCOUNTER → 2018-11-05 | Outpatient (CLI) | payer OTHER, MEDICARE | LOC: BHFA 11:30 | PROVIDERS: ATTEND Internal Medicine Cardiovascular Disease | DX: I10 Essential (primary) hypertension (principal) ==

== ENCOUNTER → 2018-11-24 | Outpatient (CLI) | payer OTHER, MEDICARE | LOC: BMCIMAGING 14:36 | PROVIDERS: ATTEND Internal Medicine Rheumatology | DX: M19.071 Primary osteoarthritis, right ankle and foot (principal) ==

== ENCOUNTER 2018-12-13 10:17 | Emergency (ER) | payer OTHER, MEDICARE ==
--- NOTE | 2018-12-13 10:37 | EDPHY ---
H & P Stated Complaint: Hx migraines, daily x2mos, vertigo x2wks. Time Seen by Provider: 12/13/18 10:37 HPI/ROS: CHIEF COMPLAINT: Chronic migraines, worsening vertigo HISTORY OF PRESENT ILLNESS: The patient presents to the ED with a history of chronic migraine headaches. The patient is also been bothered by episodic vertigo which is increasing more in frequency over the past several weeks. The patient denies any recent history of neck injury or trauma. He does have chronic neck pain from a prior cervical fusion. The patient reports fairly reproducible symptoms of positional vertigo specifically when looking down developing vertigo. He denies any associated peripheral numbness or weakness. He denies any acute headache today. The patient is scheduled to see a new neurologist next week. He states that his symptoms today are much better than they were over the weekend. He was concerned about the change in frequency of his vertigo which prompted his visit to the emergency department today. REVIEW OF SYSTEMS: A comprehensive 10 point review of systems is otherwise negative aside from elements mentioned in the history of present illness. Source: Patient Exam Limitations: No limitations - Personal History Current Tetanus/Diphtheria Vaccine: Yes Tetanus Vaccine Date: 07/2012 - Medical/Surgical History Hx Asthma: No Hx Chronic Respiratory Disease: No Hx Diabetes: No Hx Cardiac Disease: Yes Hx Renal Disease: No Hx Cirrhosis: No Hx Alcoholism: No Hx HIV/AIDS: No Hx Splenectomy or Spleen Trauma: No Other PMH: medical- DVT 07/15, CAD, HTN, HLD. surgical- knee scope 07/22/13, spinal fusions, B thumbs replaced, rigo - Social History Smoking Status: Never smoked - Physical Exam Exam: General Appearance: Alert, no distress Eyes: Pupils equal and round no pallor or injection ENT, Mouth: Mucous membranes moist Respiratory: There are no retractions, lungs are clear to auscultation Cardiovascular: Regular rate and rhythm Gastrointestinal: Abdomen is soft and nontender, no masses, bowel sounds normal Neurological: A&O, normal motor function, normal sensory exam, normal cranial nerves Skin: Warm and dry, no rashes Musculoskeletal: Neck is supple nontender Extremities: symmetrical, full range of motion Psychiatric: Patient is oriented X 3, there is no agitation Constitutional: Initial Vital Signs Temperature (C) 36.8 C 12/13/18 10:25 Heart Rate 74 12/13/18 10:25 Respiratory Rate 16 12/13/18 10:25 Blood Pressure 141/82 H 12/13/18 10:25 O2 Sat (%) 93 12/13/18 10:25 O2 Delivery Mode Room Air Allergies/Adverse Reactions: NSAIDS (Non-Steroidal Anti-Inflamma [Nsaids] Allergy (Severe, Verified 12/13/18 10:25) GASTRIC ULCER hydrocodone bitartrate [From Vicodin] Allergy (Intermediate, Verified 12/13/18 10:25) Vomiting nitroglycerin [Nitroglycerin] Allergy (Intermediate, Verified 12/13/18 10:25) Other-Enter Comments oxycodone HCl [From Percocet] Allergy (Intermediate, Verified 12/13/18 10:25) Vomiting amitriptyline [From Elavil] Allergy (Verified 12/13/18 10:25) oxymorphone [From Opana] Allergy (Verified 12/13/18 10:25) Vomiting CODIENE Allergy (Intermediate, Uncoded 09/16/18 23:18) Vomiting Home Medications: Medication Instructions Recorded Zolpidem Tartrate [Ambien 5MG (*)] 10 mg PO HS 09/27/11 Atorvastatin Calcium [Lipitor 40 40 mg PO DAILY 09/16/18 mg (*)] Cyclobenzaprine [Flexeril 10 MG 10 mg PO DAILY PRN 09/16/18 (*)] Diazepam [Valium 5 MG (*)] 5 mg PO DAILY PRN 09/16/18 Eletriptan Hydrobromide [Relpax] 40 mg PO DAILY PRN 09/16/18 FLUoxetine [Prozac 20 MG (*)] 40 mg PO DAILY 09/16/18 Hyoscyamine Sulfate [Levsin, 0.125 mg PO DAILY PRN 09/16/18 Hyomax-Sl 0.125 mg (*)] Prochlorperazine Maleate 10 mg PO DAILY PRN 09/16/18 [Compazine 10mg (*)] celeCOXIB [Celebrex (*)] 200 mg PO BID PRN 09/16/18 Metoprolol Tartrate [Lopressor 25 25 mg PO BID 09/17/18 mg (*)] Pantoprazole Sodium [Protonix 40mg 40 mg PO DAILY #30 ea 09/17/18 (*)] Promethazine HCl [Phenergan 25mg 25 mg PO DAILY PRN 09/17/18 (*)] Sumatriptan Succinate [Imitrex] 100 mg PO DAILY PRN 09/17/18 Medical Decision Making - Diagnostics Imaging Results: Imaging Impressions Head CT 12/13/18 11:12 Impression: Negative. No acute intracranial hemorrhage, subdural hematoma, or evidence of acute cortical ischemia. Findings discussed with Emergency Department physician, Soy King on 12/13, 12:00. CT angiogram neck: Negative for dissection or aneurysm. No filling defect noted. Images reviewed by myself and discussed with radiologist Dr. Sawyer. ED Course/Re-evaluation: The patient is now asymptomatic for presents to the ED with increasing vertigo over the past several weeks. The patient does endorse some symptoms of vertigo precipitated by a looking down. Given these complaints a CT angiogram of the neck has been ordered to evaluate for dissection. Patient is asymptomatic at this point time. CT scan of the head and angiogram of the neck demonstrate no evidence of a injury of a central vessel. The patient is noted to be neurologically intact without symptoms of vertigo or appreciable headache in the emergency department. He has no clinical evidence of meningitis or stroke. Patient will be discharged home and advised to follow up with Neurology as scheduled. Differential Diagnosis: Differential diagnosis considered includes vertebral dissection, central vertigo , peripheral vertigo, migraine syndrome - Data Points Laboratory Results: 12/13/18 11:01 POC Hgb 18.7 gm/dL H gm/dL (13.7-17.5) POC Hct 55 % H % (40-51) POC Sodium 140 mEq/L mEq/L (135-145) POC Potassium 4.2 mEq/L mEq/L (3.3-5.0) POC Chloride 107 mEq/L mEq/L (97-110) POC Total CO2 21 mEq/L L mEq/L (22-31) POC BUN 17 mg/dL mg/dL (7-23) POC Creatinine 0.7 mg/dL mg/dL (0.7-1.3) POC Glucose 115 mg/dL H mg/dL (70-100) Point of Care Test Results: Chemistry 12/13/18 11:01 POC Sodium 140 mEq/L mEq/L (135-145) POC Potassium 4.2 mEq/L mEq/L (3.3-5.0) POC Chloride 107 mEq/L mEq/L (97-110) POC Total CO2 21 mEq/L L mEq/L (22-31) POC BUN 17 mg/dL mg/dL (7-23) POC Creatinine 0.7 mg/dL mg/dL (0.7-1.3) POC Glucose 115 mg/dL H mg/dL (70-100) ISTAT H&H 12/13/18 11:01 POC Hgb 18.7 gm/dL H gm/dL (13.7-17.5) POC Hct 55 % H % (40-51) Departure - Departure Disposition: Home, Routine, Self-Care Clinical Impression: Vertigo, Migraine syndrome Condition: Good Instructions: Vertigo (ED) Additional Instructions: 1. Please follow up with Neurology as scheduled. 2. Your CT scan demonstrates no evidence of an obvious abnormality. 3. Return to the ED for severe headache, numbness, weakness, difficulty with speech or ambulation. 4. Return to the ED for severe uncontrolled vertigo. Referrals: Danica Cervantes MD [Primary Care Provider] - As per Instructions
[2018-12-13] MEDS ORDERED: IOPAMIDOL (ISOVUE 370) 100 ML BTL IV ONE (11:28)
[2018-12-13 12:49] VITALS: BP 135/87
--- NOTE | 2018-12-13 20:39 | ASMTCMCOM ---
CM Note CM Note Notes: Spoke w/pt and his Kristina at bedside. Kristina requesting various resources (physical therapy, counseling, etc.) that can come to the home for pt. CM provided pt and Kristina with info on [facility] in [place]. Pt's PCP is Dr Danica Cervantes at [facility] ([phone]); CM called and spoke w/RN associate professor of medicine, Maryellen Herrera ([phone]) and relayed pt's ED visit, upcoming neurology appt w/[facility], and request for additional resources/assistance/support at home; Maryellen states she will reach out to the pt and Kristina to schedule a followup appt and will also request that a Behavioral Health Specialist visit with the pt during his next appt to assess for additional outpatient resource/support needs. Maryellen mentioned that the pt seems to have several various providers including Dr Raina Mcleod at [facility] for chronic pain, a director of student aid, etc. Date Signed: 12/13/2018 08:38 PM Electronically Signed By:Vashti Connelly RN
== END 2018-12-13 12:59 | disposition home or self-care (01) ==
DX: R42 Dizziness and giddiness (principal); G43.909 Migraine, unspecified, not intractable, without status migrainosus; I10 Essential (primary) hypertension; I25.10 Atherosclerotic heart disease of native coronary artery without angina pectoris; E78.5 Hyperlipidemia, unspecified
CPT/HCPCS: 70450; 70496; 70498; 99285; Q9967; 82435-PO; 82565-PO; 82947-PO; 84132-PO; 84295-PO; 84520-PO; 85014-ER

== ENCOUNTER → 2019-01-11 | Outpatient (CLI) | payer OTHER, MEDICARE | LOC: FIMAGING 15:53 ==